=== PATIENT | female | born 1940 | race American Indian/Alaskan Native ===

== ENCOUNTER 2017-12-06 07:11 | Day surgery (SDC) | payer MEDICARE ==
--- NOTE | 2017-12-06 08:39 | Discharge Summary ---
Short Stay Discharge Plan Activity: no restrictions Weight Bearing Status: Full Weight Bearing Diet: regular Wound: remove dressing (may remove dressing in 3 days and shower) Follow up with: WILDA STOVALL [Other] - 6 Weeks WORK,NELIDA Dumont JR, MD [Staff Physician] - 7 Days
--- NOTE | 2017-12-06 08:40 | Short Stay Summary ---
Short Stay Documentation Date of service: 12/06/17 - Allergies and Medications Current Medications: Allergies No Known Allergies Allergy (Verified 12/03/17 11:18) Home Medications Medication Instructions Recorded Confirmed Last Taken Type Allopurinol [Zyloprim] 300 mg PO QDAY 12/03/17 12/03/17 Unknown History Folic Acid [Folvite] 1 mg PO QDAY 12/03/17 12/03/17 Unknown History Insulin Glargine,Hum.rec.anlog 0 units SQ PRN PRN 12/03/17 12/03/17 Unknown History [Lantus] Lisinopril [Zestril TAB] 40 mg PO QDAY 12/03/17 12/03/17 Unknown History Methotrexate [Xatmep] 2.5 mg PO QWEEK 12/03/17 12/03/17 Unknown History amLODIPine [Norvasc] 5 mg PO DAILY 12/03/17 12/03/17 Unknown History - Brief post op/procedure progress note Date of procedure: 12/06/17 Pre-op diagnosis: Intertrigo/Panniculitis Post-op diagnosis: same Procedure: Panniculectomy Anesthesia: GETA Surgeon: NELIDA CARLIN JR Estimated blood loss: 50-100ml Specimen disposition: to lab Condition: stable - Disposition Condition at discharge: Good Disposition: - TO HOME OR SELFCARE Short Stay Discharge Plan Follow up with: WILDA STOVALL [Other] - 6 Weeks NELIDA CARLIN JR, MD [Staff Physician] - 7 Days
[2017-12-06] MEDS ORDERED: ZOFRAN IV PRN (09:45)
--- NOTE | 2017-12-06 09:45 | Anesthesia Consultation ---
Anesthesia Consult and Med Hx Date of service: 12/06/17 - Airway Anesthetic Teeth Evaluation: Good ROM Head & Neck: Adequate Mental/Hyoid Distance: Adequate Mallampati Class: Class I Intubation Access Assessment: Probably Good - Pulmonary Exam CTA: Yes - Cardiac Exam Cardiac Exam: RRR - Pre-Operative Health Status ASA Pre-Surgery Classification: ASA2 Proposed Anesthetic Plan: General - Pulmonary Hx Smoking: No - Cardiovascular System Hx Hypertension: Yes (SINCE 1999) - Central Nervous System Hx Back Pain: Yes Hx Psychiatric Problems: No - Other Systems Hx Alcohol Use: No Hx Substance Use: No Hx Cancer: Yes
--- NOTE | 2017-12-06 09:45 | Anesthesia Day of Surgery ---
Anesthesia Day of Surgery - Day of Surgery Patient Examined: Yes Patient H&P Reviewed: Yes Patient is NPO: Yes
[2017-12-06] MEDS ORDERED: NEURONTIN PO NR (10:00)
[2017-12-06] MEDS ORDERED: TYLENOL PO NR (10:00)
[2017-12-06] MEDS ORDERED: LACTATED RINGERS 1,000 ML IV SCH (10:00)
[2017-12-06] MEDS ORDERED: DIPRIVAN 10 MG/ML IV ONE (10:48)
[2017-12-06] MEDS ORDERED: SUBLIMAZE ONE ×2 (10:48→12:48)
[2017-12-06] MEDS ORDERED: ANCEF/STERILE WATER 2 GM/20 ML IV NR (11:00)
[2017-12-06] MEDS ORDERED: ePHEDrine 50 MG/5 ML-0.9% NACL IV ONE (11:36)
[2017-12-06] MEDS ORDERED: ZEMURON IV ONE (12:02)
[2017-12-06] MEDS ORDERED: XYLOCAINE MPF 2% ONE (12:02)
[2017-12-06] MEDS ORDERED: ROBINUL ONE (12:02)
[2017-12-06] MEDS ORDERED: ZOFRAN ONE (12:02)
[2017-12-06] MEDS ORDERED: BENADRYL ONE (12:02)
[2017-12-06] MEDS ORDERED: NEO SYNEPHRINE/NS Syringe(OR USE) IV ONE (12:02)
[2017-12-06] MEDS ORDERED: QUELICIN ONE (12:02)
[2017-12-06] MEDS ORDERED: LACTATED RINGERS 1,000 ML ONE (12:06)
[2017-12-06] MEDS: DILAUDID IV PRN ×2 (13:15→14:19)
[2017-12-06] MEDS ORDERED: NORCO 7.5/325 PO SCH (14:28)
[2017-12-06 17:37] VITALS: BP 148/70
--- NOTE | 2017-12-06 19:11 | Operative Report ---
SERVICE: Plastic Surgery. PREOPERATIVE DIAGNOSES: 1. Panniculitis. 2. Intertrigo. POSTOPERATIVE DIAGNOSES: 1. Panniculitis. 2. Intertrigo. 3. Umbilical hernia. PROCEDURES: 1. Panniculectomy. 2. Umbilectomy. 3. Umbilical hernia repair. SURGEON: Williams Bonner MD DESCRIPTION OF PROCEDURE: The patient was brought to our operating room and placed on the table in supine position. Following administration of general anesthesia, the abdomen was prepped with Betadine solution, draped in usual sterile manner. A #10 blade scalpel was used to make a Pfannenstiel skin incision deepened through subcutaneous fat down to fascia using electrocautery. Abdominal wall skin flap was elevated superiorly up to the level of the epigastrium with transection of the umbilicus at its base where it was discovered that the patient had an umbilical hernia. The fascial defect was closed with a running and interrupted 0 Prolene suture. Excess pannus was resected and closure was performed over 10 mm WILLIAMS flat drains using interrupted 2-0 Monocryl sutures followed by keri over 10 mm WILLIAMS drains. The patient tolerated the procedure well and returned to recovery room in stable condition. JOB# [id number]
== END 2017-12-06 17:10 | disposition home or self-care (01) ==
LOC: OR 07:11
PROVIDERS: ATTEND Plastic Surgery
DX: M79.3 Panniculitis, unspecified (principal); L30.4 Erythema intertrigo; K42.9 Umbilical hernia without obstruction or gangrene; I10 Essential (primary) hypertension; Z79.899 Other long term (current) drug therapy
CPT/HCPCS: 15830; 49585; 82962; 88305; J0330; J0690; J1170; J1200; J2370; J2405; J2704; J3010; J7120